=== PATIENT | female | born 1955 | race Caucasian/White ===

== ENCOUNTER 2016-07-05 01:53 | Emergency (ER) | payer OTHER ==
[~2016-07-05] VITALS: Ht 160 cm; Wt 109.1 kg
[2016-07-05 01:57] VITALS: BP 128/78; PULSE 88; RESP 22; O2SAT 96
--- NOTE | 2016-07-05 02:49 | ED.REPORT ---
HPI-General Illness Date of Service Jul 05, 2016 ED Provider: Dr. Loving A 60 year old female with a history of HTN and diabetes presents to the ED complaining of pain, swelling, and redness in left leg onset two days ago. The patient visited two days ago for left leg swelling and redness, and the leading edges were marked. She went to again today where she received pressure wrap for her leg. She has had increasing pain since that time and the erythema has extended well beyond the leading edge michael. She denies any original injury that could have caused these symptoms. Earlier at , the patient had fever( max temp 100), but she did not feel sick. Nursing Notes Stated Complaint: LEFT LEG PAIN Chief Complaint: Extremity Trauma Nursing Notes Reviewed: Yes Allergies: Coded Allergies: Sulfa (Sulfonamide Antibiotics) (Unverified Allergy, Severe, angioedema, ) Scheduled PRN Hydrocodone-Acetaminophen 5-325 mg (Hydrocodone-Acetaminophen 5-325 mg) 1 Each Tablet 1 TABLET PO Q4H PRN PRN For Pain General Time Seen by MD: 03:05 Chief Complaint Other (left leg pain) Hx Obtained From: Patient Arrived By: Walk-in Sudden in Onset?: No Onset Occurred: 2 days ago Symptom Duration: Since onset Location: : Leg left Severity: Current: Moderate Severity: Maximum: Moderate Recent Healthcare: Recent doctor visit (visited earlier today and 2 days ago.) Past Medical History Past Medical History Reports: Asthma, Diabetes mellitus, Hypertension Past Surgical History none reported. Ambulatory Status Independent Review of Systems Redness in left leg. Denies feeling sick. Denies injury. Full Review of Systems Constitutional: Reports: Fever (Max temp 100) Musculoskeletal: Reports: Extremity pain (left leg), Extremity swelling (left leg) Complete sys rev & neg: except as marked. Physical Exam Vital Signs Vital Signs Date Time Temp Pulse Resp B/P Pulse Ox O2 Delivery O2 Flow Rate FiO2 07/05/16 06:16 36.8 80 18 132/78 98 Room Air 07/05/16 05:03 36.9 82 21 130/76 97 Room Air 07/05/16 01:57 37.2 88 22 128/78 96 Room Air Initial VS: Reviewed, Vital signs normal General/Constitutional: Awake, Alert Head / Eyes: Atraumatic, Normocephalic, PERRL, EOMI Neck: Atraumatic, No swelling Respiratory / Chest: Atraumatic, Breath sounds NL, Breath sounds = bilat, No respiratory distress, No rales, No rhonchi, No wheezing Cardiovascular: Regular rhythm, Heart sounds NL, No gallop, No murmurs, No rubs Heart Rate / Rhythm: Positive: Tachycardia (a little tachycardic) Edema of distal left foot and ankle. Abdomen: No guarding, No rebound On left lower extremity, erythema and central area of purplish decoloration and softness consistent with pointing abscess. Surrounding area of induration and erythema extended out beyond previous mapping/ michael. Neurologic: Oriented X3, Speech NL Interpretation & Diagnostics Lab Results Interpretation Result Diagram: 07/05/16 0322 07/05/16 0322 Test 07/05/16 03:22 White Blood Count 11.8th/mm3 (3.8-10.1) Red Blood Count 4.07mil/mm3 (3.90-5.20) Hemoglobin 9.6g/dL (12.0-15.6) Hematocrit 30.9% (35.0-46.0) Mean Corpuscular Volume 75.9fL (81-100) Mean Corpuscular Hemoglobin 23.6pg (27.0-35.0) Mean Corpuscular Hemoglobin Concent 31.1% (32.0-37.0) Red Cell Distribution Width 16.1% (12.3-15.4) Platelet Count 403bil/L (150-400) Neutrophils (%) (Auto) 71.1% (40-74) Lymphocytes (%) (Auto) 21.1% (14-46) Monocytes (%) (Auto) 5.3% (4-12) Eosinophils (%) (Auto) 1.8% (0-5) Basophils (%) (Auto) 0.4% (0-3) Sodium Level 126mEq/L (134-144) Potassium Level 3.5mEq/L (3.5-5.2) Chloride Level 90mEq/L (97-108) Carbon Dioxide Level 17mmol/L (18-29) Blood Urea Nitrogen 13mg/dL (6-24) Creatinine 0.78mg/dL (0.57-1.00) Estimat Glomerular Filtration Rate 108mL/min (>59) Glucose Level 432mg/dL (60-99) Lactic Acid Level 1.7mmol/L (0.4-2.0) Calcium Level 9.2mg/dL (8.5-10.1) Magnesium Level 1.6mg/dL (1.6-2.6) Total Bilirubin 0.5mg/dL (0.0-1.2) Aspartate Amino Transf (AST/SGOT) 23U/L (0-50) Alanine Aminotransferase (ALT/SGPT) 18U/L (0-32) Alkaline Phosphatase 142U/L (25-165) Total Protein 7.9g/dL (6.4-8.4) Albumin 3.4g/dL (3.4-5.0) Lab Results Interpretation: Mildly elevated white blood count Procedures Incision & Drainage Abscess I & D Abscess: Performed I&D on left leg abscess. Time: 05:22 Procedure Performed by: ED physician Skin Preparation Agent: Shurclens Local Anesthesia: Lidocaine 1% Incised Abscess with Scalpel: #11 Pus Drained: Purulent discharge (100cc) Irrigation: Yes Post-Procedure / Complications: Packing placed, Dressing applied (gauze wic) , No complications, Tolerated procedure well, Patient stable Re-Eval/Medical Decision Med Decision/Clinical Course 60-year-old female with left lower extremity cellulitis and subsequent development of an abscess in the central area. This was I&D. During the time she stated in the emergency room the erythema had decreased significantly. She was instructed not to use a compression wrap. She will continue the antibiotics and follow-up in 2 days. Source of Hx: Old records Time of Eval: 03:24 Re-Evaluation/Progress Note: Explained plan to give antibiotics and perform drainage. Time of Eval: 05:22 Re-Evaluation/Progress Note: Rechecked patient and performed I&D on left leg abscess. Explained test results, diagnosis, and plan for discharge. Patient understands and agrees with the plan. All questions addressed. Counseled Regarding: Diagnosis, Lab results, Need for follow-up, When/why to return to ED Discharge & Departure Primary Impression: Abscess of left lower leg Additional Impression: Cellulitis of left lower leg Disposition: Home Discharge Condition All VS Reviewed: Yes Condition: Improved Patient Instructions: Abscess Incision and Drainage (ED) Additional Instructions: Keep the wick in place for 2 days. Follow-up with your regular provider or return to the emergency room for reevaluation. Me at [phone] between the hours since 9 PM and 6 AM for the next couple of nights if you have any questions or concerns. Finish your clindamycin. Tylenol and/or ibuprofen as needed for pain. Elevate. Do not wear the Jose wrap. Scribe Attestation Portions of this note were transcribed by Saulo Pressley. I, Dr. Loving personally performed the history, physical exam and medical decision-making; I reviewed and confirmed the accuracy of the information in the transcribed note. Signed by: Nestor Manley, 07/05/2016 and 0603. copies to: Cody Newby MD Jul 05, 2016 02:49 Saulo Pressley Jul 05, 2016 03:27
[2016-07-05] MEDS ORDERED: 0.9% Sodium Chloride 1,000 ML IV ONE (03:27)
[2016-07-05] MEDS ORDERED: Clindamycin Inj 900 MG in IV Premix 1 EACH IV ONE (03:30)
[2016-07-05] MEDS ORDERED: Ondansetron 2 mg/mL 2 mL Inj IV PRN (03:30)
[2016-07-05 03:37] LABS: BASOPHILS % (AUTO) 0.4 % (0-3); EOSINOPHILS % (AUTO) 1.8 % (0-5); MONOCYTES % (AUTO) 5.3 % (4-12); Mean Corpuscular Hemoglobin 23.6 pg (27.0-35.0); Mean Corpuscular Volume 75.9 fL (81-100); NEUTROPHILS % (AUTO) 71.1 % (40-74)
[2016-07-05 03:50] LABS: Platelet Count 403 bil/L (150-400)
[2016-07-05 03:52] LABS: Magnesium 1.6 mg/dL (1.6-2.6)
[2016-07-05 05:03] VITALS: BP 130/76; PULSE 82; RESP 21; O2SAT 97
[2016-07-05] MEDS ORDERED: HYDR-4003 PO (06:10)
[2016-07-05] MEDS ORDERED: HYDROcodone-APAP 5-325 mg Tablet PO ONE (06:10)
[2016-07-05 06:16] VITALS: BP 132/78; PULSE 80; RESP 18; O2SAT 98
== END 2016-07-05 06:19 | disposition home or self-care (01) ==
LOC: SED 01:53
DX: L02.416 Cutaneous abscess of left lower limb (principal); L03.116 Cellulitis of left lower limb; I10 Essential (primary) hypertension; E11.9 Type 2 diabetes mellitus without complications; Z88.2 Allergy status to sulfonamides
CPT/HCPCS: 10061; 80053; 83605; 83735; 85025; 96365; 99284; J7030